=== PATIENT | male | born 1955 ===

== ENCOUNTER 2017-04-12 14:29 | Emergency (ER) | payer MEDICARE ==
[2017-04-12 14:30] VITALS: BMI 22.1
[2017-04-12 14:34] VITALS: TEMP 98.9
--- NOTE | 2017-04-12 15:20 | ED PDOC ---
Arrival/HPI - General Historian: Patient, Family - History of Present Illness Time/Duration: < week Symptom Onset: Gradual Symptom Course: Improving Quality: Aching Context: Walking <Shawn Costa - Last Filed: 04/12/17 18:22> <Aubrey Hoffmann - Last Filed: 04/12/17 18:31> - General Chief Complaint: Lower Extremity Problem/Injury Time Seen by Provider: 04/12/17 14:38 - History of Present Illness Narrative History of Present Illness (Text): 04/12/17 15:14 61yo M with Past medical history including CVA at age 18, Seizure disorder, RLE DVT here for evaluation of right foot pain. Pain located on the lateral aspect of the right foot, described as sharp, slightly improved since onset, with associated mild erythema and swelling. Pain started 4 days ago, patient denies any specific events at onset. He was at a jainism event and states that he may have had a mis-step, however, he is uncertain. This is complicated hx due to patient having a history of partial right sided weakness and paralysis secondary to stroke at age 18. He denies any fevers or chills. States that he took aspirin and used cold compresses for pain control with moderate relief. Due to his history of DVT, he became concerned and came into the emergency department for further evaluation. He denies any calf pain, denies Chest pain, no shortness of breath. No nausea, no vomiting, no abdominal pain. He is normally ambulatory with noticible limp. He states that currently, he is unable to ambulate as he normally does due to the pain. Lead Cook: Dr. 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 Seizure disorder. DVT in RLE 04/12/17 15:22 (Shawn Costa) Past Medical History - Provider Review Nursing Documentation Reviewed: Yes - Infectious Disease Hx of Infectious Diseases: None - Neurological Hx Neurological Disorder: Yes HX Cerebrovascular Accident: Yes Hx Paralysis: Yes Hx Seizures: Yes - Musculoskeletal/Rheumatological Hx Falls: No - Psychiatric Hx Depression: No Hx Emotional Abuse: No Hx Physical Abuse: No Hx Substance Use: No - Surgical History Other/Comment: cyst removals - Suicidal Assessment Feels Threatened In Home Enviroment: No <Shawn Costa - Last Filed: 04/12/17 18:22> Family/Social History Family/Social History: Unknown Family HX Smoking Status: Never Smoked Hx Alcohol Use: No Hx Substance Use: No <Shawn Costa - Last Filed: 04/12/17 18:22> - Physician Review Nursing Documentation Reviewed: Yes <Aubrey Hoffmann - Last Filed: 04/12/17 18:31> Allergies/Home Meds <Shawn Costa - Last Filed: 04/12/17 18:22> <TahiraAubrey - Last Filed: 04/12/17 18:31> Allergies/Adverse Reactions: Allergies No Known Allergies Allergy (Verified 05/04/13 18:39) Home Medications: Home Meds Medication Instructions Recorded Confirmed Phenytoin, Extended [Dilantin] 100 mg PO TID 05/04/13 04/12/17 Folic Acid 1 mg PO DAILY 04/12/17 04/12/17 Multivitamin [Men's Multi-Vitamin] 1 tab PO DAILY 04/12/17 04/12/17 PHENobarbital [PHENobarbital Tab] 32.4 mg PO BID 04/12/17 04/12/17 Review of Systems - Physician Review All systems were reviewed & negative as marked: Yes - Review of Systems Constitutional: Normal Eyes: absent: Vision Changes Respiratory: absent: SOB Cardiovascular: absent: Chest Pain, Edema, Calf Pain Gastrointestinal: absent: Abdominal Pain, Nausea, Vomiting Musculoskeletal: Other (right foot pain and swelling) Neurological: absent: Headache, Dizziness <Shawn Costa - Last Filed: 04/12/17 18:22> Physical Exam Vital Signs Reviewed: Yes Temperature: Afebrile Blood Pressure: Normal Pulse: Regular Respiratory Rate: Normal Appearance: Positive for: Well-Appearing, Non-Toxic, Comfortable Mental Status: Positive for: Alert and Oriented X 3 - Systems Exam Head: Present: Atraumatic, Normocephalic Extroacular Muscles: Present: EOMI Mouth: Present: Moist Mucous Membranes Respiratory/Chest: Present: Clear to Auscultation, Good Air Exchange. No: Respiratory Distress, Accessory Muscle Use, Wheezes Cardiovascular: Present: Normal S1, S2 Abdomen: No: Tenderness, Distention Upper Extremity: Present: Normal Inspection Lower Extremity: Present: Other (right lower extremity - foot with mild erythema , mild edema, some warmth compared to left foot. Tender to palpation lateral aspect of foot. No sores, no apparent break in skin) Neurological: Present: GCS=15, Speech Normal Psychiatric: Present: Alert, Oriented x 3 <Shawn Costa - Last Filed: 04/12/17 18:22> Medical Decision Making - Lab Interpretations I have reviewed the lab results: Yes <Shawn Costa - Last Filed: 04/12/17 18:22> <Aubrey Hoffmann - Last Filed: 04/12/17 18:31> ED Course and Treatment: 04/12/17 15:25 61yo M with hx of right sided weakness and right lower extremity DVT here for evaluation of right foot pain - In the setting of possible trauma 4 days ago, history is poor - Duplex US RLE - Foot Xray - CBC due erythema and warmth - Reassess and dispo (Shawn Costa) 04/12/17 16:06 Patient Seen With Resident: In agreement with resident note which contains more details about the patient. Patient was seen and evaluated with resident. Came up with plan and treatment together. 04/12/17 18:30 X-rays showing fx of base of the 5th MT; likely pseudojones fx - will hold on splint - patient saying they will f/u licensed nursing assistant, Dr. Morse. (Aubrey Hoffmann) - Lab Interpretations Lab Results: 04/12/17 15:35 Lab Results 04/12/17 15:35: WBC 9.5, RBC 4.46, Hgb 14.3, Hct 41.8 L, MCV 93.7, MCH 32.1, MCHC 34.2, RDW 13.3, Plt Count 255, MPV 8.7, Gran % 60.7, Lymph % (Auto) 25.7, [place] % (Auto) 10.3 H, Eos % (Auto) 2.8, Baso % (Auto) 0.5, Gran # 5.75, Lymph # 2.4, Marathon # 1.0 H, Eos # 0.3, Baso # 0.05 - RAD Interpretation Narrative RAD Interpretations (Text): 04/12/17 18:10 Right foot Xray - Proximal 5th metatarsal fx. (Shawn Costa) Radiology Orders: 04/12/17 15:11 DUPLEX LOWER EXTRM VEIN RIGHT [US] Stat 04/12/17 15:13 FOOT RIGHT 3 VIEWS ROUTINE [RAD] Stat - PA / REEL OPERATOR / Resident Statement JEROD has reviewed & agrees with the documentation as recorded. JEROD has examined the patient and agrees with the treatment plan. <Shawn Costa - Last Filed: 04/12/17 18:22> - PA / REEL OPERATOR / Resident Statement JEROD has reviewed & agrees with the documentation as recorded. JEROD has examined the patient and agrees with the treatment plan. - Scribe Statement The provider has reviewed the documentation as recorded by the Scribe <Aubrey Hoffmann - Last Filed: 04/12/17 18:31> - Scribe Statement Azeb Redding Provider Scribe Attestation: All medical record entries made by the Scribe were at my direction and personally dictated by me. I have reviewed the chart and agree that the record accurately reflects my personal performance of the history, physical exam, medical decision making, and the department course for this patient. I have also personally directed, reviewed, and agree with the discharge instructions and disposition. (Aubrey Hoffmann) Disposition/Present on Arrival - Present on Arrival Any Indicators Present on Arrival: Yes History of DVT/PE: Yes History of Uncontrolled Diabetes: No Urinary Catheter: No History of Decub. Ulcer: No History Surgical Site Infection Following: None - Disposition Have Diagnosis and Disposition been Completed?: Yes Disposition Time: 18:12 Patient Plan: Discharge <Julissa,Shawn - Last Filed: 04/12/17 18:22> <Aubrey Hoffmann - Last Filed: 04/12/17 18:31> - Disposition Diagnosis: Metatarsal bone fracture Disposition: HOME/ ROUTINE Patient Problems: Current Active Problems Problem Status Onset Metatarsal bone fracture Acute Condition: GOOD Discharge Instructions (ExitCare): Foot Fracture in Adults (ED) Additional Instructions: 1. Follow up with your Lead Cook within 3 days. (Call for appointment) 2. Take OTC ibuprofen as needed for pain. Alternate between warm and cold compresses for pain relief 3. Weight-bearing as tolerated. 4. Return to the ER with any concerning symptoms Referrals: Jesus Morse DPM [Staff Provider] - Follow up with primary Forms: [employer] (Spanish)
[2017-04-12 16:11] LABS: BASO # 0.05 K/mm3 (0.0-2.0); BASO % 0.5 % (0.0-3.0); EOS # 0.3 (0.0-0.7); EOS % 2.8 % (1.5-5.0); GRAN # 5.75 (1.4-6.5); GRAN % 60.7 % (50.0-68.0); HEMOGLOBIN 14.3 gm/dL (14.0-18.0); LYMPH # 2.4 (1.2-3.4); LYMPH % 25.7 % (22.0-35.0); MEAN CELL VOLUME 93.7 fL (80.0-105.0); MEAN CORPUSCULAR HEMOGLOBIN 32.1 pg (25.0-35.0); MEAN CORPUSCULAR HGB CONC 34.2 g/dl (31.0-37.0); MEAN PLATELET VOLUME 8.7 fl (7.0-11.0); MONO % 10.3 % (1.0-6.0); PLATELET COUNT 255 10^3/uL (120.0-450.0); RBC 4.46 10^6/uL (3.5-6.1); RED CELL DISTRIBUTION WIDTH 13.3 % (11.5-14.5); WHITE BLOOD COUNT 9.5 10^3/ul (4.5-11.0)
--- NOTE | 2017-04-12 17:07 | RAD ---
PROCEDURE: Right Foot Radiographs. HISTORY: foot pain, swelling. R/o fx COMPARISON: None. FINDINGS: BONES: There is a transverse minimally displaced fracture of the base of the 5th metatarsal JOINTS: Normal. SOFT TISSUES: Normal. OTHER FINDINGS: None. IMPRESSION: There is a transverse minimally displaced fracture of the base of the 5th metatarsal
[2017-04-12 18:25] VITALS: RESP 18
[2017-04-12 18:30] VITALS: BP 119/78; PULSE 68; O2SAT 100
--- NOTE | 2017-04-14 17:59 | US ---
PROCEDURE: Right lower extremity venous US HISTORY: Leg pain and swelling. Evaluate for DVT. PHYSICIAN(S): Jesus Medley M.D. TECHNIQUE: Duplex sonography and color-flow Doppler with graded compression were used to evaluate the deep venous system of the right lower extremity. FINDINGS: The visualized deep venous system of the right lower extremity is sonographically normal and compressible. Normal waveforms and augmentation are seen. There is no sonographic evidence for deep venous thrombosis in the visualized segments of the right lower extremity. IMPRESSION: 1. No sonographic evidence for deep venous thrombosis in the visualized segments of the right lower extremity.
== END 2017-04-12 18:30 | disposition home or self-care (01) ==
LOC: ED 14:29
DX: S92.351A Displaced fracture of fifth metatarsal bone, right foot, initial encounter for closed fracture (principal); X58.XXXA Exposure to other specified factors, initial encounter; Y92.22 Religious institution as the place of occurrence of the external cause